=== PATIENT | female | born 1990 | race Two or more races ===

== ENCOUNTER 2021-10-26 09:37 | Emergency (ER) | payer OTHER, SELFPAY ==
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
[2021-10-26 09:44] VITALS: BP 141/88; PULSE 81; RESP 16; TEMP 36.8; O2SAT 100; BMI 23.5
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
== END 2021-10-26 10:57 | disposition home or self-care (01) ==
PROVIDERS: Emergency Provider Emergency Medicine; PCP Nurse Practitioner Adult Health
DX: S29.012A Strain of muscle and tendon of back wall of thorax, initial encounter (principal); V43.52XA Car driver injured in collision with other type car in traffic accident, initial encounter; Y93.89 Activity, other specified; Y92.414 Local residential or business street as the place of occurrence of the external cause; Y99.9 Unspecified external cause status
CPT/HCPCS: 71046; 99283